=== PATIENT | female | born 1950 | race Caucasian/White ===

== ENCOUNTER 2017-09-12 18:30 | Emergency (ER) | payer OTHER ==
[~2017-09-12] VITALS: Ht 163.8 cm; Wt 80.0 kg
[~2017-09-12 18:30] MED LIST: ALTACE2.5 MG PO; BACTRIM DS1 TAB PO; CALTRATE 600 PO; CIPRO500 MG OR; CLINDAMYCIN300 MG PO; DURAGESIC12 ( TD; DURAGESIC25 MCG/PAT TD; FOLIC ACID5 MG; LEVOTHYROXIN125 MCG PO; LEVOTHYROXIN25 MCG OR; LOPRESSOR12.5 MG PO; LORTAB 5 OR; MEDDOSEPAK OR; METOPROLOL25 M1 OR; MICRO-K8 MEQ PO; MULTI VIT PO; NAPROSYN500 MG OR; NAPROSYN500 MG PO; PANTOPRAZOLE SO40 MG PO; PREVACID30 M2 PO; SOF-LAX100 MG PO; SUCRALFATE1 GM/10 ML PO; TRAMADOL HCL50 MG OR; TRIAMCINOLON0.13 EX; ZITHROMAX500 MG PO; ZOFRAN ODT4 MG PO; [UNRECOGNIZED DRUG - OTHER]; [UNRECOGNIZED DRUG - OTHER]
[2017-09-12 19:36] LABS: HEMATOCRIT 45.1 % (37.0-47.0); HEMOGLOBIN 14.7 g/dl (12.0-16.0); IMMATURE GRANULOCYTES 0.2 % (0.0-1.0); MEAN CELL VOLUME 98.7 fL CALC (80.0-100.0); MEAN CORPUSCULAR HGB 32.2 pG CALC (26.0-32.0); MEAN CORPUSCULAR HGB CONC 32.6 g/L CALC (32.0-36.0); NEUT# 8.9 thou/uL (2.00-7.15); RED BLOOD COUNT 4.57 mill/uL (4.20-5.60)
[2017-09-12 19:54] LABS: ALBUMIN 4.5 g/dL (3.2-5.0); ALKALINE PHOSPHATASE 111 u/l (38-126); AMYLASE 60 u/l (30-110); ANION GAP 15 (6-22 (CALC)); BILIRUBIN, TOTAL 0.6 mg/dL (0.0-1.4); BUN 15 mg/dL (8-23); BUN/CREATININE RATIO 19 (12-20 (CALC)); CALCIUM 9.9 mg/dL (8.4-10.2); CARBON DIOXIDE 31 mmol/l (22-30); CHLORIDE 99 mmol/l (95-108); CREATININE 0.8 mg/dL (0.5-1.0); GFR > 60 ML/MIN (>=60 (CALC)); GFR FOR AFR.AMER. > 60 ML/MIN (>=60 (CALC)); GLUCOSE 123 mg/dL (82-115); LIPASE 101 u/l (23-300); POTASSIUM 4.6 mmol/l (3.5-5.1); SGOT/AST 39 u/l (9-36); SGPT/ALT 34 u/l (11-66); SODIUM 140 mmol/l (137-146); TOTAL PROTEIN 7.6 g/dL (6.3-8.2)
[2017-09-12 20:31] LABS: URINE BILIRUBIN - DIPSTICK NEGATIVE (NEGATIVE); URINE BLOOD DIPSTICK NEGATIVE (NEGATIVE); URINE COLOR YELLOW; URINE GLUCOSE - DIPSTICK NEGATIVE (NEGATIVE); URINE KETONE TRACE mg/dL (NEGATIVE); URINE LEUK ESTERASE NEGATIVE (NEGATIVE); URINE NITRITE - DIPSTICK NEGATIVE (Negative); URINE PH 5.5 (4.5-8.0); URINE PROTEIN - DIPSTICK TRACE mg/dL (NEG-TRACE); URINE SPECIFIC GRAVITY >=1.030; URINE UROBILINOGEN - DIPSTICK 0.2 E.U./dL (0.2)
[2017-09-12 20:32] LABS: URINE CLARITY CLEAR
[2017-09-13 00:07] VITALS: BP 114/49
== END 2017-09-13 00:43 | disposition short-term general hospital (02) | DRG 386 ==
LOC: ED 18:30 → ED-I 23:20 → ED 09-13 00:43
PROVIDERS: Emergency Medicine
DX: K50.912 Crohn's disease, unspecified, with intestinal obstruction (principal); I10 Essential (primary) hypertension; K59.00 Constipation, unspecified; R11.2 Nausea with vomiting, unspecified; R00.1 Bradycardia, unspecified; R10.32 Left lower quadrant pain

== ENCOUNTER 2017-11-20 14:06 | Emergency (ER) | payer OTHER ==
[~2017-11-20] VITALS: Ht 163.8 cm; Wt 74.0 kg
[2017-11-20] MEDS ORDERED: [UNRECOGNIZED DRUG - OTHER] PO (14:44)
[2017-11-20 15:09] LABS: INFLUENZA A NONE DETECTED (NONE DETECT); INFLUENZA B NONE DETECTED (NONE DETECT)
[2017-11-20] MEDS ORDERED: ZOFRAN4 M1 PO (15:19)
[2017-11-20] MEDS ORDERED: DOXYCYC MONO100 M2 PO (15:19)
[2017-11-20] MEDS ORDERED: PROAIR HFA108 MCG/AC PO (15:20)
[2017-11-20 15:25] VITALS: BP 140/75
== END 2017-11-20 15:35 | disposition home or self-care (01) | DRG 153 ==
LOC: ED 14:06
PROVIDERS: Family Medicine
DX: J06.9 Acute upper respiratory infection, unspecified (principal); K50.90 Crohn's disease, unspecified, without complications; I10 Essential (primary) hypertension